=== PATIENT | female | born 1950 | race Caucasian/White ===

== ENCOUNTER 2017-01-22 11:55 | Emergency (ER) | payer MEDICARE, BC ==
[~2017-01-22 11:55] MED LIST: ADULT LOW DOSE81 M1 PO; ADVAIR 5001 DISK W/D; ADVAIR 50028 BLISTE1 INH; ALPRAZOLAM1 MG PO; AMITIZA24 MC1 PO; AMLODIPINE BES2.5 M1 PO; AMLODIPINE BESYL5 MG PO; ASPIRIN EC81 MG PO; ATIVAN0.5 M1 PO; ATIVAN0.5 MG PO; ATIVAN1 M2 PO; ATROVENT; AUGMENTIN 875-1 EAC2 PO; AVANDARYL; BACTRIM DS TAB1 EAC2 PO; BUTRANS1 EAC3 TD; CATAPRES0.2 MG; CEFTRIAXON2000 MG/VI IV; CEPHALEXIN500 M1 PO; CITALOPRAM HBR40 M1 PO; CLONIDINE HCL0.2 MG PO; COLACE100 M1 PO; COMPAZINE; COMPAZINE10 M; CULTURELLE CAP1 EAC1 PO; CYCLOBENZAPRINE10 M1 PO; CYMBALTA20 M1 PO; CYMBALTA30 M1 PO; CYMBALTA60 M1 PO; DOMPERIDONE; DULCOLAX10 MG PR; ENALAPRIL MALEAT5 MG PO; HUMALOG100 UNITS/ SC; HUMULIN R100 UNITS/ SC; HYDROXYZINE HCL25 M1 PO; HYDROXYZINE HCL50 M1 PO; JANUVIA; KEFLEX500 M4 PO; LANTUS100 UNITS/; LANTUS100 UNITS/ SC; LEVOTHYROXINE100 MC1 PO; LEVOXYL125 MC1 PO; LISINOPRIL2.5 M1 PO; LYRICA75 MG; MEGACE400 MG/11 PO; MERTAZAPINE PO; METOPROLOL SUCC25 M1 PO; METOPROLOL TART25 M1 PO; MIRALAX17 G2 PO; MIRTAZAPINE15 M1 PO; MORPHINE SULFAT15 MG PO; MOVANTIK25 MG PO; MS CONTIN15 M1 PO; MS CONTIN30 M1 PO; MS CONTIN60 M1 PO; MUPIROCIN22 G2; NEXIUM20 MG; NORCO 10/325 TA1 TAB; NORCO 10/325 TA1 TAB PO; NORCO 5-325 TA1 EACH PO; NORTRIPTYLINE H50 M1 PO; NORTRIPTYLINE H50 MG PO; NORVASC5 M2 PO; NOVOLIN N100 UNIT/2 SC; NOVOLOG MIX 70/10 ML SQ; NYSTATIN1 EA10 TOP; NYSTOP60 GM EXT; OXYCODONE HCL5 M1 PO; OXYCODONE IR PO; OXYCODONE-ACET1 EAC4 PO; OXYGEN NS; PERCOCET 10-321 EACH PO; PERCOCET 5-3251 EACH PO; PHENERGAN PO; PRILOSEC OTC20 MG PO; PRILOSEC40 M1 PO; PROBIOTIC1 EA10 PO; PROPRANOLOL HCL20 M2 PO; PROTONIX20 M2 PO; PROTONIX40 M2 PO; SODIUM BICARBO650 M1 PO; SOMA350 MG; STOP HOME MEDICATION; SYNTHROID100 MCG; SYNTHROID125 MC1 PO; SYNTHROID150 MC1 PO; TESSALON PERLE100 M1 PO; TRAMADOL HCL50 M2 PO; TRAMADOL HCL50 MG PO; TYLENOL EXTRA500 M1 PO; ULTRAM50 M1 PO; VALIUM10 M1 PO; VITAMIN D250000 UNI1 PO; VITAMIN D32000 UNI3 PO; ZANTAC150 M1 PO; ZIAC 5-6.25 MG1 TAB; ZOFRAN ODT8 MG PO; ZOFRAN ODT8 MG/TAB PO; ZOFRAN8 M1 PO; [UNRECOGNIZED DRUG - OTHER]
[2017-01-22] MEDS ORDERED: LASIX20 M1 PO (12:05)
[2017-01-22 12:55] LABS: BASO % 2.1 % (0-2); BASO ABSOLUTE COUNT 0.1 tho/cmm (0.0-0.2); EOS % 4.5 % (0-7); EOSINOPHIL ABSOLUTE COUNT 0.3 tho/cmm (0.0-0.7); HGB-HEMOGLOBIN 9.5 gm/dl (12.0-15.5); IMMATURE GRANULOCYTES ABSOLUTE 0.02 tho/cmm (0-0.03); IMMATURE GRANULOCYTES PERCENT 0.3 % (0-0.3); LYMPH % 33.9 % (20-45); LYMPH ABSOLUTE COUNT 2.1 tho/cmm (0.8-4.5); MCH (MEAN CORPUSCULAR HGB) 26.5 pg (28.0-32.0); MCHC MEAN CORPUSCULAR HGB CONC 31.7 % (32.0-36.0); MCV (MEAN CELL VOLUME) 83.8 fl (82.0-96.0); MEAN PLATELET VOLUME 8.2 cmc (9.4-12.4); MONO % 9.9 % (0-12); MONOCYTE ABSOLUTE COUNT 0.6 tho/cmm (0.0-1.2); NEUTROPHIL ABSOLUTE COUNT 3.1 tho/cmm (1.6-8.0); NEUTROPHIL-AUTOMATED 3.1 tho/cmm (1.6-8.0); NEUTROPHILS % 49.3 % (40-80); PLATELET COUNT 333 tho/cmm (150-450); RED BLOOD COUNT 3.58 mil/cmm (4.00-5.20); RED CELL DISTRIBUTION WIDTH 17.8 % (12.4-16.4); WHITE BLOOD COUNT 6.3 tho/cmm (4.0-10.0)
[2017-01-22 13:08] LABS: ALB/GLOB RATIO 0.9 (0.8-2.0); ALBUMIN 3.6 g/dl (3.5-5.0); ALKALINE PHOSPHATASE 81 U/L (33-138); ALT/SGPT 14 U/L (12-78); ANION GAP 16 mmol/L (0-20); AST/SGOT 10 U/L (10-40); BILIRUBIN,TOTAL 0.1 mg/dl (0-1.5); BLOOD UREA NITROGEN 25 mg/dl (6-24); CALCIUM 8.4 mg/dl (8.5-10.5); CARBON DIOXIDE-VENOUS 19 mmol/L (22-32); CHLORIDE 112 mmol/l (96-110); CREATININE 1.56 mg/dl (0.50-1.10); GLUCOSE 192 mg/dL (70-110); POTASSIUM 5.2 mmol/L (3.7-5.1); SODIUM 142 mmol/L (135-145); eGFR VALUE FOR BLACK 40 mL/Min
[2017-01-22] MEDS ORDERED: KIONEX15 GM/601 PO (13:25)
[2017-02-10] MEDS ORDERED: LASIX40 M1 PO (10:50)
[2017-02-10] MEDS ORDERED: VITAMIN D32000 UNI2 PO (10:52)
[2017-02-10] MEDS ORDERED: VITAMIN D350000 UNI1 PO (10:52)
[2017-02-10] MEDS ORDERED: ADVAIR 50028 BLISTE1 PO (11:02)
== END 2017-01-22 15:02 ==
LOC: EDMED 11:55
PROVIDERS: Emergency Medicine
DX: E87.5 Hyperkalemia (principal); E11.22 Type 2 diabetes mellitus with diabetic chronic kidney disease; N18.9 Chronic kidney disease, unspecified; Z79.4 Long term (current) use of insulin
CPT/HCPCS: J7030

== ENCOUNTER 2017-02-11 09:22 | Inpatient (IN) | payer MEDICARE, BC ==
[~2017-02-11 09:22] MED LIST changes: +ADVAIR 50028 BLISTE1 PO; +KIONEX15 GM/601 PO; +LASIX20 M1 PO; +LASIX40 M1 PO; +VITAMIN D32000 UNI2 PO; +VITAMIN D350000 UNI1 PO
[2017-02-11 10:18] LABS: BASO % 2.2 % (0-2); BASO ABSOLUTE COUNT 0.2 tho/cmm (0.0-0.2); EOS % 5.3 % (0-7); EOSINOPHIL ABSOLUTE COUNT 0.4 tho/cmm (0.0-0.7); HCT-HEMATOCRIT 28.2 % (34.0-49.0); HGB-HEMOGLOBIN 8.9 gm/dl (12.0-15.5); IMMATURE GRANULOCYTES ABSOLUTE 0.03 tho/cmm (0-0.03); IMMATURE GRANULOCYTES PERCENT 0.4 % (0-0.3); LYMPH % 32.3 % (20-45); LYMPH ABSOLUTE COUNT 2.4 tho/cmm (0.8-4.5); MCH (MEAN CORPUSCULAR HGB) 26.8 pg (28.0-32.0); MCHC MEAN CORPUSCULAR HGB CONC 31.6 % (32.0-36.0); MCV (MEAN CELL VOLUME) 84.9 fl (82.0-96.0); MEAN PLATELET VOLUME 8.3 cmc (9.4-12.4); MONO % 10.1 % (0-12); MONOCYTE ABSOLUTE COUNT 0.8 tho/cmm (0.0-1.2); NEUTROPHIL ABSOLUTE COUNT 3.7 tho/cmm (1.6-8.0); NEUTROPHIL-AUTOMATED 3.7 tho/cmm (1.6-8.0); NEUTROPHILS % 49.7 % (40-80); PLATELET COUNT 332 tho/cmm (150-450); RED BLOOD COUNT 3.32 mil/cmm (4.00-5.20); RED CELL DISTRIBUTION WIDTH 17.4 % (12.4-16.4); WHITE BLOOD COUNT 7.4 tho/cmm (4.0-10.0)
[2017-02-11 10:25] LABS: INR 0.9 INR (0.9-1.1); PROTHROMBIN TIME 10.4 SECONDS (9.0-13.6)
[2017-02-11 10:30] LABS: ANION GAP 16 mmol/L (0-20); BLOOD UREA NITROGEN 26 mg/dl (6-24); CALCIUM 8.6 mg/dl (8.5-10.5); CARBON DIOXIDE-VENOUS 18 mmol/L (22-32); CHLORIDE 116 mmol/l (96-110); CREATININE 1.53 mg/dl (0.50-1.10); GLUCOSE 116 mg/dL (70-110); POTASSIUM 5.8 mmol/L (3.7-5.1); SODIUM 144 mmol/L (135-145); eGFR VALUE FOR BLACK 41 mL/Min
[2017-02-12 06:47] LABS: ANION GAP 15 mmol/L (0-20); BLOOD UREA NITROGEN 16 mg/dl (6-24); CALCIUM 8.6 mg/dl (8.5-10.5); CARBON DIOXIDE-VENOUS 19 mmol/L (22-32); CHLORIDE 113 mmol/l (96-110); CREATININE 1.21 mg/dl (0.50-1.10); GLUCOSE 115 mg/dL (70-110); SODIUM 142 mmol/L (135-145); eGFR VALUE FOR BLACK 54 mL/Min
[2017-02-12 06:48] LABS: POTASSIUM 4.7 mmol/L (3.7-5.1)
== END 2017-02-12 12:50 | DRG 497 ==
LOC: SHSB 09:22 → ORE 11:49 → PACU 13:18 → 5EB 14:20
PROVIDERS: Hospitalist; ADMIT Orthopaedic Surgery Sports Medicine
PROC: 0PP Upper Bones, Removal (ICD-10-PCS; principal; 2017-02-11)
DX: T84.018A Broken internal joint prosthesis, other site, initial encounter (principal); E11.22 Type 2 diabetes mellitus with diabetic chronic kidney disease; N18.3 Chronic kidney disease, stage 3 (moderate); Z79.4 Long term (current) use of insulin; G47.33 Obstructive sleep apnea (adult) (pediatric); Z96.611 Presence of right artificial shoulder joint; E78.5 Hyperlipidemia, unspecified; K21.9 Gastro-esophageal reflux disease without esophagitis; F32.9 Major depressive disorder, single episode, unspecified; F41.9 Anxiety disorder, unspecified; E87.5 Hyperkalemia; E03.9 Hypothyroidism, unspecified; E55.9 Vitamin D deficiency, unspecified; Z88.5 Allergy status to narcotic agent; Z88.1 Allergy status to other antibiotic agents; Z88.6 Allergy status to analgesic agent
CPT/HCPCS: G8978-GP-CK; G8979-GP-CJ; G8980-GP-CK; G8987-GO-CK; G8988-GO-CJ; G8989-GO-CK; J0690; J1815; J2250; J2270; J2405; J3010; J7030